=== PATIENT | male | born 1945 | race Caucasian/White ===

== ENCOUNTER 2020-09-26 19:05 | Emergency (ER) | payer MEDICARE, OTHER ==
[~2020-09-26 19:05] MED LIST: ACETAMINOPHEN500 M1 PO; ATENOLOL25 MG PO; LIPITOR20 MG PO; LOSARTAN-HCTZ1 EAC1 PO; NORCO 5-325 TA1 EACH PO; NORVASC5 MG PO; SYNTHROID50 MCG PO; ZOFRAN4 MG PO
[2020-09-26 20:11] LABS: BASOPHIL 0.2 % (0-2); EOSINOPHIL 0.2 % (0-7); HCT 45.8 % (42.0-52.0); HGB 15.7 g/dl (13.2-18.0); LYMPHOCYTE 6.7 % (15-48); MCH 30.8 pg (25.0-31.0); MCHC 34.3 g/dL (32.0-36.0); MONOCYTE 10.9 % (0-12); MPV 11.1 fL (6.0-9.5); NEUTROPHIL 81.5 % (41-80); NRBC 0; PLT 158 K/uL (150-400); RBC 5.09 M/uL (4.70-6.00); RDW 12.9 % (11.5-14.0); WBC 10.3 K/uL (4.0-10.5)
[2020-09-26 20:29] LABS: ALBUMIN 4.4 g/dL (3.4-5.0); BILIRUBIN - TOTAL 0.8 mg/dL (0.2-1.0); BUN/CREAT RATIO (CALC) 17.4 RATIO; CREATININE 1.38 mg/dL (0.67-1.17); POTASSIUM 3.5 mmol/L (3.5-5.1); TOTAL PROTEIN 7.4 g/dL (6.4-8.2)
[2020-09-26 22:01] LABS: BILIRUBIN NEGATIVE (NEGATIVE); BLOOD 3+ Ery/uL (NEGATIVE); CLARITY CLEAR (CLEAR); COLOR YELLOW (YELLOW); GLUCOSE (U) NORMAL (NORMAL); LEUKOCYTES 1+ Leu/uL (NEGATIVE); NITRITE NEGATIVE (NEGATIVE); PROTEIN NEGATIVE (NEGATIVE); UROBILINOGEN 0.2 mg/dL (0.2-1.0)
[2020-09-26 22:16] LABS: BACTERIA 1+
[2020-09-27] MEDS ORDERED: BACTRIM DS TAB1 EACH PO (02:55)
[2020-09-27] MEDS ORDERED: ANTIVERT25 MG PO (02:55)
== END 2020-09-27 03:20 | disposition home or self-care (01) ==
LOC: FER 19:05
PROVIDERS: Emergency Medicine
DX: N39.0 Urinary tract infection, site not specified (principal); R11.2 Nausea with vomiting, unspecified
CPT/HCPCS: 36415; 70450; 71045; 80053; 81001; 83605; 84484; 85025; 87040; 87077; 87186; 93005; J0696; J7030